=== PATIENT | male | born 1945 | race Caucasian/White ===

== ENCOUNTER 2018-12-03 08:27 | Day surgery (SDC) | payer MEDICARE, OTHER ==
[2018-12-03] MEDS ORDERED: Sodium Chloride 0.9% 1,000 ML IV SCH (09:00)
[2018-12-03] MEDS ORDERED: fentaNYL 100 MCG/2 ML SDV ONE (09:53)
[2018-12-03] MEDS ORDERED: Propofol 200 MG/20 ML SDV ONE (09:53)
[2018-12-03] MEDS ORDERED: Midazolam 1 MG/ML 2 ML SDV ONE (09:53)
--- NOTE | 2018-12-04 08:06 | OR ---
DATE OF PROCEDURE: 12/03/2018 SURGEON: Robb Rogel MD PROCEDURE: Colonoscopy. FINDINGS: 1. Diverticulosis, mild, limited to sigmoid colon. 2. Sigmoid colon polyp, approximately 8 mm, completely removed using cold snare. COMPLICATIONS: None. OCEANOLOGIST: None. RISKS: Risks, benefits, alternatives, and limitations including, but not limited to infection, bleeding, and perforation were explained to the patient, who wished to proceed. PROCEDURE IN DETAIL: The patient was placed in left lateral decubitus position. Digital rectal exam was performed without abnormality. Scope was introduced and advanced atraumatically to the ileocecal valve. A photo was taken. The scope was brought back through the remainder of the colon, where the aforementioned polyp was identified and completely removed. Diverticulosis would be described as mild, limited to sigmoid colon without any evidence of bleeding or diverticulitis. No abnormalities and retroflexed. The patient tolerated the procedure well. Robb Rogel MD /[id number]
== END 2018-12-03 12:34 | disposition home or self-care (01) ==
LOC: JP.SDS 08:27
PROVIDERS: ATTEND Surgery
DX: Z12.11 Encounter for screening for malignant neoplasm of colon (principal); K57.30 Diverticulosis of large intestine without perforation or abscess without bleeding; K63.89 Other specified diseases of intestine; I10 Essential (primary) hypertension; E78.00 Pure hypercholesterolemia, unspecified
CPT/HCPCS: 45385; 88305; J2250; J2704; J3010; J7030